=== PATIENT | male | born 1950 | race Caucasian/White ===

== ENCOUNTER 2020-04-03 17:48 | Emergency (ER) | payer OTHER ==
--- NOTE | 2020-04-03 18:04 | ER Document Report ---
ED Medical Screen (RME) - General Chief Complaint: Irregular Pulse Stated Complaint: IRREGULAR HEART BEAT Time Seen by Provider: 04/03/20 17:55 Mode of Arrival: Ambulatory Information source: Patient Notes: Patient presents complaining of intermittent episodes in which she feels hot in his chest, feels short of breath and feels as though he is going to pass out. Patient states he had similar symptoms over a year ago whenever he was having runs of atrial fibrillation. Patient denies any chest pain symptoms. Patient reports a history of hypertension, GERD, BPH, and previous cardiac ablation. Patient does report using CPAP machine at nighttime. I have greeted and performed a rapid initial assessment of this patient. A comprehensive ED assessment and evaluation of the patient, analysis of test results and completion of the medical decision making process will be conducted by additional ED providers. - Related Data Allergies/Adverse Reactions: No Known Allergies Allergy (Unverified 04/03/20 18:01) Home Medications: alfuzosin, omeprazole, amlodipine, finasteride, hctz, pradaxa, metoprolol Physical Exam - Respiratory Respiratory status: No respiratory distress Chest status: Nontender Chest palpation: Normal - Cardiovascular Rhythm: Regular. No: Tachycardia Heart sounds: S1 appreciated, S2 appreciated
[2020-04-03 18:39] LABS: ABSOLUTE EOSINOPHILS # (AUTO) 0.1 10^3/uL (0.0-0.6); ABSOLUTE MONOCYTES (AUTO) 0.7 10^3/uL (0.1-1.4); ABSOLUTE NEUT (AUTO) 4.1 10^3/uL (1.7-8.2); BASOPHILS % (AUTO) 0.5 % (0-2); EOSINOPHILS % (AUTO) 1.3 % (0-6); HEMATOCRIT 44.6 % (37.9-51.0); HEMOGLOBIN 14.9 g/dL (13.5-17.0); LYMPHOCYTES % (AUTO) 28.9 % (13-45); MEAN CORPUSCULAR HEMOGLOBIN 28.7 pg (27.0-33.4); MEAN CORPUSCULAR HGB CONC 33.5 g/dL (32.0-36.0); MEAN CORPUSCULAR VOLUME 86 fl (80-97); MONOCYTES % (AUTO) 9.8 % (3-13); PLATELET COUNT 218 10^3/uL (150-450); RED BLOOD COUNT 5.19 10^6/uL (4.35-5.55); RED CELL DISTRIBUTION WIDTH 13.9 % (11.5-14.0); SEGMENTED NEUTROPHILS % (AUTO) 59.5 % (42-78); TOTAL CELLS COUNTED % (AUTO) 100 %; WHITE BLOOD COUNT 6.9 10^3/uL (4.0-10.5)
[2020-04-03 18:51] LABS: ALBUMIN 4.5 g/dL (3.5-5.0); ALKALINE PHOSPHATASE 79 U/L (38-126); ANION GAP 6 (5-19); ASPARTATE AMINO TRANSFERASE 34 U/L (17-59); BILIRUBIN,DIRECT 0.3 mg/dL (0.0-0.4); BILIRUBIN,TOTAL 0.8 mg/dL (0.2-1.3); BLOOD UREA NITROGEN 14 mg/dL (7-20); CALCIUM 9.7 mg/dL (8.4-10.2); CARBON DIOXIDE 29 mmol/L (22-30); CHLORIDE 105 mmol/L (98-107); GLUCOSE 112 mg/dL (75-110); POTASSIUM 4.3 mmol/L (3.6-5.0); TOTAL PROTEIN 7.1 g/dL (6.3-8.2)
--- NOTE | 2020-04-03 18:53 | RADIOLOGY REPORT (SQ) ---
EXAM DESCRIPTION: CHEST SINGLE VIEW IMAGES COMPLETED DATE/TIME: 04/03/2020 6:25 pm REASON FOR STUDY: sob COMPARISON: None. EXAM PARAMETERS: NUMBER OF VIEWS: One view. TECHNIQUE: Single frontal radiographic view of the chest acquired. RADIATION DOSE: NA LIMITATIONS: None. FINDINGS: LUNGS AND PLEURA: Relative elevation of the left hemidiaphragm with resultant bronchovascu lar crowding. No focal consolidation, pleural effusion, or pneumothorax. MEDIASTINUM AND HILAR STRUCTURES: No masses. Contour normal. HEART AND VASCULAR STRUCTURES: Heart normal in size. Normal vasculature. BONES: No acute findings. HARDWARE: None in the chest. OTHER: No other significant finding. IMPRESSION: No evidence of acute cardiopulmonary abnormality. TECHNICAL DOCUMENTATION: JOB ID: [id number] 2010 [employer]- All Rights Reserved Reading location - IP/workstation name: [email or web address]
[2020-04-03 19:04] LABS: NT PRO BNP 313 pg/mL (<125)
[2020-04-03 19:05] LABS: TROPONIN I < 0.012 ng/mL
--- NOTE | 2020-04-03 19:34 | ER Document Report ---
Entered by OLVIN PALENCIA SCRIBE 04/03/201916 Acting as scribe for:LOULOU MOTA DO ED General - General Chief Complaint: Palpitations Stated Complaint: IRREGULAR HEART BEAT Time Seen by Provider: 04/03/20 17:55 Mode of Arrival: Ambulatory Information source: Patient Notes: This 70 year old male patient with a history of HTN and A fib on Pradaxa presents to the ED today with complaints of intermittent episodes of hot flashes, palpitations, shortness of breath, and near-syncope since Tuesday x4 days ago. Patient states that he experienced similar symptoms in the past whenever he has runs of A fib. Denies any chest pain. He mentions that he is visiting from [place] for a in the family. - Related Data Allergies/Adverse Reactions: No Known Allergies Allergy (Unverified 04/03/20 18:01) Home Medications: alfuzosin, omeprazole, amlodipine, finasteride, hctz, pradaxa, metoprolol Past Medical History - General Information source: Patient - Social History Smoking Status: Former Smoker Cigarette use (# per day): No Chew tobacco use (# tins/day): No Smoking Education Provided: No Frequency of alcohol use: None Drug Abuse: None Lives with: Spouse/Significant other Family History: Reviewed & Not Pertinent Patient has suicidal ideation: No Patient has homicidal ideation: No - Past Medical History Cardiac Medical History: Reports: Hx Atrial Fibrillation - ablation, pradaxa, Hx Hypertension Pulmonary Medical History: Reports: Hx Sleep Apnea - wears CPAP at night Renal/ Medical History: Reports: Hx Benign Prostatic Hyperplasia GI Medical History: Reports: Hx Gastroesophageal Reflux Disease Past Surgical History: Reports: Hx Appendectomy, Hx Cardiac Surgery - ablation Review of Systems - Review of Systems Constitutional: See HPI EENT: No symptoms reported Cardiovascular: See HPI, Palpitations, Syncope - near. denies: Chest pain Respiratory: See HPI, Short of breath Gastrointestinal: No symptoms reported Genitourinary: No symptoms reported Male Genitourinary: No symptoms reported Musculoskeletal: No symptoms reported Skin: No symptoms reported Hematologic/Lymphatic: No symptoms reported Neurological/Psychological: No symptoms reported -: Yes All other systems reviewed and negative Physical Exam - Vital signs Vitals: Temp Pulse Resp BP Pulse Ox 97.8 F 70 18 174/80 H 97 04/03/20 18:09 04/03/20 18:09 04/03/20 18:09 04/03/20 18:09 04/03/20 18:09 Interpretation: Hypertensive - General General appearance: Appears well, Alert In distress: None - HEENT Head: Normocephalic, Atraumatic Eyes: Normal Extraocular movements intact: Yes Pupils: PERRL - Respiratory Respiratory status: No respiratory distress Chest status: Nontender Breath sounds: Normal Chest palpation: Normal - Cardiovascular Rhythm: Regular Heart sounds: Normal auscultation Murmur: No Friction rub: No Gallop: None auscultated - Abdominal Inspection: Morbidly Obese Distension: No distension Bowel sounds: Normal Tenderness: Nontender - Abdomen soft Organomegaly: No organomegaly - Back Back: Normal, Nontender - Extremities General upper extremity: Normal inspection General lower extremity: Normal inspection. No: Edema - Neurological Neuro grossly intact: Yes Cognition: Normal Orientation: AAOx4 [place] Coma Scale Eye Opening: Spontaneous [place] Coma Scale Verbal: Oriented [place] Coma Scale Motor: Obeys Commands [place] Coma Scale Total: 15 - Psychological Associated symptoms: Normal affect, Normal mood - Skin Skin Temperature: Warm Skin Moisture: Dry Skin Color: Normal Course - Re-evaluation Re-evalutation: 04/03/20 19:34 MDM 70 year old with htn, a fib - distant ablation (14 years ago) is here with a warm feeling at times and a bit of dizziness. No focal weakness and no chest pain and no sob. Pradaxa taker and has not missed any doses. He feels this is very similar to episodes of a fib he has had previously and he is visiting from [place]. No leg pain or swelling. No chf detected. Pe not supported in my opinion by presentation. 04/03/20 22:33 Pt has been monitored over 4 hours here and no afib and no chest pain and no sob. Trop staying undetectable and we discussed follow up. - Vital Signs Vital signs: Temp Pulse Resp BP Pulse Ox 97.8 F 70 17 145/78 H 96 04/03/20 18:09 04/03/20 18:09 04/03/20 22:01 04/03/20 22:01 04/03/20 22:01 - Laboratory Result Diagrams: 04/03/20 18:15 04/03/20 18:15 Laboratory results interpreted by me: 04/03/20 04/03/20 18:15 18:15 Glucose 112 H NT-Pro-B Natriuret Pep 313 H - Diagnostic Test Radiology reviewed: Reports reviewed - EKG Interpretation by Me EKG shows normal: Sinus rhythm Rate: Normal Rhythm: NSR [place]/QRS: RBBB - NSr Nl [place] [address] elevation or depression my interpretation. Discharge - Discharge Clinical Impression: Dizziness Atrial fibrillation Qualifiers: Atrial fibrillation type: unspecified chronic Qualified Code(s): I48.20 - Chronic atrial fibrillation, unspecified; I48.2 - Chronic atrial fibrillation Condition: Stable Disposition: HOME, SELF-CARE Instructions: Palpitations (Irregular or Rapid Heartrate) ([facility]), Beta Blockers ([facility]) Additional Instructions: See your doctor in follow up in [place] or call Dr. Parnell locally for follow up. Continue the pradaxa and the other blood pressure medicines. Please return here for any problems or any concern including but not limited to chest pain or shortness of breath or dizziness that worsens. Referrals: DESTINY PARNELL MD [ACTIVE PROVISIONAL STAFF] - 04/04/20 I personally performed the services described in the documentation, reviewed and edited the documentation which was dictated to the scribe in my presence, and it accurately records my words and actions.
[2020-04-03 22:04] VITALS: BP 145/78
--- NOTE | 2020-04-04 11:19 | EKG REPORT ---
SEVERITY:- ABNORMAL ECG - SINUS RHYTHM RIGHT BUNDLE BRANCH BLOCK : Confirmed by: Cesilia Cunningham MD 04-Apr-2020 11:18:54
== END 2020-04-03 22:58 | disposition home or self-care (01) ==
LOC: ER 17:48
DX: I48.20 Chronic atrial fibrillation, unspecified (principal); R42 Dizziness and giddiness; R00.2 Palpitations; R06.02 Shortness of breath; I10 Essential (primary) hypertension; Z79.899 Other long term (current) drug therapy; Z87.891 Personal history of nicotine dependence
CPT/HCPCS: 36415; 71045; 80053; 83735; 83880; 84484; 85025; 93005; 93010; 99285